=== PATIENT | male | born 1975 | race Caucasian/White ===

== ENCOUNTER → 2022-04-17 | Day surgery (SDC) | payer BC, OTHER ==
[2022-04-11 17:02] VITALS: BMI 26.1
[~2022-04-17] MED LIST: BUPIVACAINE HCL/PF 0.5% (5MG/ML) 10 ML VIAL ONE; LIDOCAINE HCL 2% (20ML MULTI-DOSE VIAL) ONE
== END | disposition home or self-care (01) ==
LOC: JASU-SURG 04:46
PROVIDERS: ATTEND Urology
DX: Z53.8 Procedure and treatment not carried out for other reasons (principal)

== ENCOUNTER 2022-11-13 04:23 | Day surgery (SDC) | payer BC, OTHER ==
[2022-11-09 15:58] VITALS: BMI 26.6
[2022-11-13] MEDS ORDERED: LIDOCAINE HCL 1%, 10 MG/ML (10ML VIAL) MDV ONE (11:02)
[2022-11-13] MEDS ORDERED: BUPIVACAINE HCL/PF 0.5% (5MG/ML) 10 ML VIAL ONE (11:02)
[2022-11-13] MEDS ORDERED: LIDOCAINE HCL 2% (20ML MULTI-DOSE VIAL) ONE (11:26)
[2022-11-13] MEDS ORDERED: MIDAZOLAM HCL 2 MG/2 ML SINGLE DOSE VIAL ONE (13:07)
[2022-11-13] MEDS ORDERED: ceFAZolin SODIUM 1 GM VIAL IVPB ONE (13:15)
[2022-11-13] MEDS ORDERED: SUCCINYLCHOLINE CHLORIDE 200 MG/10 ML SYRINGE ONE (13:22)
[2022-11-13] MEDS ORDERED: PROPOFOL 40 ML ONE (13:23)
[2022-11-13] MEDS ORDERED: LIDOCAINE HCL 2% (50ML VIAL) NR ONE ×2 (13:31)
[2022-11-13] MEDS ORDERED: BUPIVACAINE HCL/PF 0.5% (5MG/ML) 10 ML VIAL NR ONE ×2 (13:31)
[2022-11-13 16:17] VITALS: RESP 18; TEMP 97.5
[2022-11-13 16:27] VITALS: BP 136/82; PULSE 52
== END 2022-11-13 17:00 | disposition home or self-care (01) ==
LOC: JASU-SURG 04:23
PROVIDERS: ATTEND Urology
PROC: 0VBQ0ZZ Excision of Bilateral Vas Deferens, Open Approach (ICD-10-PCS; principal; 2022-11-13 12:00)
DX: Z30.2 Encounter for sterilization (principal)
CPT/HCPCS: 88302-TC; 94760